=== PATIENT | female | born 1975 | race Caucasian/White ===

== ENCOUNTER 2018-01-06 13:17 | Emergency (ER) | payer MEDICAID ==
--- NOTE | 2018-01-06 13:50 | EDM.PDOC ---
ED HPI GENERAL MEDICAL PROBLEM - General Chief Complaint: ENT Problem Stated Complaint: SEVERE TOOTHACHE Time Seen by Provider: 01/06/18 13:35 Source of Information: Reports: Patient History Limitations: Reports: No Limitations - History of Present Illness INITIAL COMMENTS - FREE TEXT/NARRATIVE: 42-year-old female has had dental pain for the last 3 days, Tylenol and topical Anbesol was working initially but the pain is worsening and she feels her come on the upper jaw on the left side is swelling. No fever or chills, no facial swelling. She has an appointment in one week at the dentist and is on a cancellation list, and is also [facility]. She has no allergies. Onset: Gradual (Over the past 3 days) Severity: Moderate Associated Symptoms: Reports: No Other Symptoms Left Tooth/Teeth Pain Score (Numeric/FACES): 10 - Related Data Allergies Allergy/AdvReac Type Severity Reaction Status Date / Time No Known Allergies Allergy Verified 08/25/14 11:49 Home Meds: Home Meds NK [No Known Home Meds] 08/25/14 [History] Past Medical History - Past Health History Medical/Surgical History: Denies Medical/Surgical History - Infectious Disease History Infectious Disease History: Reports: Chicken Pox Social & Family History - Tobacco Use Smoking Status *Q: Current Every Day Smoker Years of Tobacco use: 20 Packs/Tins Daily: 0.5 Used Tobacco, but Quit: No Second Hand Smoke Exposure: Yes - Caffeine Use Caffeine Use: Reports: Coffee, Soda - Alcohol Use Days Per Week of Alcohol Use: 2 Number of Drinks Per Day: 6 Total Drinks Per Week: 12 - Recreational Drug Use Recreational Drug Use: No ED ROS ENT - Review of Systems Review Of Systems: See Below Constitutional: Denies: Fever, Chills HEENT: Reports: Dental Pain Respiratory: Denies: Shortness of Breath GI/Abdominal: Denies: Nausea, Vomiting Skin: Denies: Erythema Neurological: Denies: Headache ED EXAM, ENT - Physical Exam Exam: See Below Exam Limited By: No Limitations General Appearance: Alert, No Apparent Distress (Looks uncomfortable but not distressed) Mouth/Throat: Other (Patient has widespread dental caries and the enamel erosion. There is tenderness to percussion of the left upper canines but no significant swelling.) Course - Vital Signs Last Recorded V/S: Last Vital Signs Temp 97.7 F 01/06/18 13:44 Pulse 87 01/06/18 13:44 Resp 16 01/06/18 13:44 BP 114/80 01/06/18 13:44 Pulse Ox 98 01/06/18 13:44 - Re-Assessments/Exams Free Text/Narrative Re-Assessment/Exam: 01/06/18 13:49 Patient will be placed on penicillin 500 mg 4 times a day, encouraged to take ibuprofen or naproxen along with the Tylenol and given 6 hydrocodone for extra pain control. She needs to get worked in to the dentist as soon as possible for dental x-rays and dental treatment. Departure - Departure Time of Disposition: 14:08 Disposition: Home, Self-Care 01 Condition: Good Clinical Impression: Dental caries, Dental abscess - Discharge Information Instructions: Dental Abscess Referrals: PCP,None [Primary Care Provider] - Forms: ED Department Discharge Care Plan Goals: Take antibiotic 4 times a day, use a regular dose of ibuprofen or naproxen along with Tylenol and add stronger pain medication over the next 24-48 hours if needed. Obtain an evaluation at a dentist office as soon as possible.
== END 2018-01-06 13:56 | disposition home or self-care (01) ==
LOC: JP.ED 13:17
DX: K04.7 Periapical abscess without sinus (principal); K02.9 Dental caries, unspecified; F17.210 Nicotine dependence, cigarettes, uncomplicated
CPT/HCPCS: 99283